=== PATIENT | male | born 1960 | race Caucasian/White ===

== ENCOUNTER 2021-07-02 23:55 | Emergency (ER) | payer MEDICARE ==
[2021-07-03 01:52] LABS: BASOPHIL 0.7 % (0-2); EOSINOPHIL 5.5 % (0-5); HCT 45.9 % (42.0-52.0); HGB 14.7 g/dl (13.2-18.0); LYMPHOCYTE 32.7 % (15-48); MCH 28.1 pg (25.0-31.0); MCV 87.6 fL (78.0-100.0); MONOCYTE 8.5 % (0-12); MPV 8.5 fL (6.0-9.5); NEUTROPHIL 52.5 % (41-80); NRBC 0; PLT 243 K/uL (150-400); RBC 5.24 M/uL (4.70-6.00); RDW 13.1 % (11.5-14.0)
[2021-07-03 01:58] LABS: CORONAVIRUS 2019 SARS-COV-2 NEGATIVE (NEGATIVE); INFLUENZA A NAA NEGATIVE (NEGATIVE)
[2021-07-03 02:05] LABS: BUN/CREAT RATIO (CALC) 10.8 RATIO; CREATININE 1.02 mg/dL (0.67-1.17); POTASSIUM 4.2 mmol/L (3.5-5.1)
[2021-07-03] MEDS ORDERED: BACLOFEN 10MG T10 MG PO (05:03)
== END 2021-07-03 05:21 | disposition home or self-care (01) ==
LOC: FER 23:55
PROVIDERS: Emergency Medicine Emergency Medical Services
DX: M54.12 Radiculopathy, cervical region (principal); R25.2 Cramp and spasm; Z88.0 Allergy status to penicillin; Z86.718 Personal history of other venous thrombosis and embolism; Z20.822 Contact with and (suspected) exposure to COVID-19
CPT/HCPCS: 36415; 70450; 71045; 72125; 80048; 82550; 84484; 85025; 85379; 87880; 93005; 93970; J1885; U0002